=== PATIENT | female | born 1990 | race Caucasian/White ===

== ENCOUNTER 2020-05-23 19:20 | Emergency (ER) | payer SELFPAY ==
--- NOTE | 2020-05-23 19:54 | ED.SKABFB ---
HPI - Skin/Abscess/Foreign Bdy General Chief complaint: Skin/Abscess/Foreign Body Stated complaint: skin boil Time Seen by Provider: 05/23/20 19:54 Source: patient Mode of arrival: ambulatory Limitations: no limitations History of Present Illness HPI narrative: Hema Brush is a 29 yo c/o abscess on L breast x 2 days- large abscess on L upper breast- pt is 32 weeks Related Data Home Medications Medication Instructions Recorded Confirmed 05/23/20 Allergies Allergy/AdvReac Type Severity Reaction Status Date / Time Penicillins Allergy Mild VOMITING Verified 01/10/11 17:44 Review of Systems Review of Systems: Narrative: CONSTITUTIONAL: Denies fever, chills, sweats. EYES: Denies visual changes, redness, discharge. ENT: Denies rhinorrhea, congestion, sore throat, otalgia. CARDIOVASCULAR: Denies chest pain, palpitations, edema. RESPIRATORY: Denies dyspnea, wheezing, cough GASTROINTESTINAL: Denies abdominal pain, nausea, vomiting, diarrhea. GENITOURINARY: Denies dysuria, hematuria, abnormal discharge SKIN: Denies rash or itching. Abscess (left chest) NEUROLOGIC: Denies numbness, or focal weakness. PSYCHIATRIC: Denies anxiety or depression. [facility] Family History Family History (Updated 05/23/20 @ 19:56 by Ruby Valerio CNP) Other No active medical problems Social History Social History (Updated 05/23/20 @ 19:56 by Ruby Valerio CNP) Smoking status: Current every day smoker Alcohol intake: current Comments At time of signature, I agree with nursing past medical, surgical, social and family history. There is no relevant family history pertinent to the presenting complaint. Exam Narrative: Exam Narrative: GENERAL: This is a well-nourished, well-developed patient, in mild distress. HEAD: normocephalic, atraumatic. EYES: PERRL. Sclera clear/white. Vision is grossly intact. EARS: External ears normal, auditory canals clear and without drainage, TMs normal without perforation. Hearing grossly intact. NOSE: External nose normal without nasal discharge, nares without redness, no rhinorrhea. THROAT: Mucous membranes moist, posterior pharynx NECK: Neck supple, non-tender CARDIOVASCULAR: Regular rate and rhythm without murmurs, gallops, or rubs. RESPIRATORY: Clear to auscultation. Breath sounds equal bilaterally. No wheezes, rales, or rhonchi. GASTROINTESTINAL: Abdomen soft, non-tender, SKIN: warm, intact with no suspicious lesions or rash, good texture and turgor.abscess measuring 6x6 and indurated on upper left breast NEURO: awake, alert, and oriented to person, place and time. There were no obvious focal neurologic abnormalities. Steady gait EXTREMITIES: Normal range of motion. BACK: Nontender without deformity Course Course Emergency Course: Needle I&D done started on antibiotics culture sent Vital Signs Vital signs: Vital Signs Temperature 97.3 F L 05/23/20 19:55 Pulse Rate 82 05/23/20 19:55 Respiratory Rate 05/23/20 19:55 Blood Pressure 119/70 05/23/20 19:55 Pulse Oximetry 98 05/23/20 19:55 Temperature 97.3 F L 05/23/20 19:55 Pulse Rate 82 05/23/20 19:55 Respiratory Rate 05/23/20 19:55 Blood Pressure 119/70 05/23/20 19:55 Pulse Oximetry 98 05/23/20 19:55 Procedures Abscess I/D chest: Date of Incision: 05/23/20 Time of Incision: 19:57 Side (if applicable): left Technique: needle aspiration Amount of fluid expressed (mL): 50 Irrigation: No Packing used?: none I&D Results: Pus and Blood Abcess I&D Additional Comments: Tolerated procedure well - drained 50 cc from abscess- directions to continue warm compresses MDM - Skin/Abscess/Foreign Bdy Differential Diagnosis Differential diagnosis: Likely abscess of skin or subcutaneous tissue, allergic reaction to drug, cellulitis and other Discharge Plan Discharge Clinical Impression: Abscess of skin or subcutaneous tiss
[2020-05-23 19:55] VITALS: BP 119/70; PULSE 82; RESP 20; TEMP 36.3; O2SAT 98
== END 2020-05-23 20:38 | disposition home or self-care (01) ==
PROVIDERS: Emergency Provider Nurse Practitioner
DX: O91.113 Abscess of breast associated with pregnancy, third trimester (principal); O99.333 Smoking (tobacco) complicating pregnancy, third trimester; F17.210 Nicotine dependence, cigarettes, uncomplicated; Z3A.32 32 weeks gestation of pregnancy
CPT/HCPCS: 10160; 87070; 87077; 87186; 87205; 99213; G0463

== ENCOUNTER 2020-07-02 17:20 | Inpatient (IN) | payer MEDICAID, SELFPAY ==
[2020-07-02] VITALS (63 sets, daily range): BP systolic 107–166; BP diastolic 55–80; PULSE 40–72; RESP 12–15; TEMP 36.2–37.1; O2SAT 91–100
--- NOTE | 2020-07-02 17:21 | LDADM ---
This patient, Hema Brush, was admitted to Labor/Delivery/Recovery 108 on 07/02/20 at 17:21. Plans for labor, pain management and were discussed with patient. Patient/family oriented to hospital policies and general routines including ID bracelet, bed and alarms, visiting hours, pain management, procedures, bathroom and other care routines, personal items, smoking policy, room service/diet and guest tray routines, security routines, and visiting hours. Patient/Family are encouraged to report perceived risks to care and to ask questions if they do not understand what they are told or what they should do. See OBIX for further documentation.
--- NOTE | 2020-07-02 19:03 | WPDANESEPP ---
Anes - Eval Pre Procedure Procedure: repeat c section Date/Time: 07/02/20 19:03 Surgeon: chang Preop Diagnosis: previous c section Pre Op Diagnosis: contractions Patient Data Age: 30 Gender: F Height: Weight: Allergies Allergy/AdvReac Type Severity Reaction Status Date / Time Penicillins Allergy Mild VOMITING Verified 01/10/11 17:44 Home Medications Medication Instructions Recorded Confirmed Type 05/23/20 History cephalexin 500 mg PO Q8H #30 cap 05/23/20 Rx sulfamethoxazole-trimethoprim 1 tablet PO Q12H #20 tablet 05/23/20 Rx [Bactrim DS] Patient hx anesthesia problems: none Family hx anesthesia problems: none PMFSH Past Medical History Medical History (Updated 07/02/20 @ 19:04 by Makayla Taveras CRNA) Hepatitis C Heroin abuse Intrauterine Polysubstance abuse Family History Family History (Updated 05/23/20 @ 19:56 by Ruby Valerio CNP) Other No active medical problems Social History Social History (Updated 05/23/20 @ 19:56 by Ruby Valerio CNP) Smoking status: Current every day smoker Alcohol intake: current Exam Day of Procedure 07/02/20 19:03
--- NOTE | 2020-07-02 20:04 | PM.IMHP ---
H&P: HPI History of Present Illness Date/Time: 07/02/20 20:04 Chief complaint: contractions Narrative: History obtained primarily by nursing staff as patient was in pain and unable to cooperate at all. Hema Brush is a 30 year old female DAVIE (per patient report) 07/19/20 currently 37w4d gestation who presented to L&D via EMS with complaints of contractions. Patient was obviously under the influence of heavy drug use and obtaining a history was difficult. She reported possible leakage of fluid, however, was uncertain and did not know what time this may have occurred. She reports limited care in [place]. She reports marijuana, heroin, and methamphetamine use. She states that she used heroin and methamphetamines yesterday and only marijuana today, however, presentation is highly suggestive of other drug use today. Upon arrival to L&D, patient was in active labor tete approx. every 1-2 mins. SVE was 4/100/-1 with bulging forebag. ROM plus was positive and patient was confirmed to be ruptured. She progressed rapidly to 9cm dilated within 45 mins. Patient was writhing in bed and pushing uncontrollably with contractions. Patient has a history of previous C/S x 1 for ? arrest of descent. Initial decision was to proceed with a C/S as patient had unknown history and no records available. However, IV access that was established became compromised and was difficult to reestablish with patient's inability to cooperate. An attempt was made to delivery vaginally via with a few pushes, however, patient was too uncontrolled and situation was deemed unsafe for a vaginal delivery. Several attempts were made to reestablish IV access with the last one successful. Patient was then transferred to OR for an emergent C/S. Of note, a bag of suspected drugs containing 7 pills and another unknown substance were found by nurse on labor bed with patient. [facility] Past Medical History Medical History (Updated 07/02/20 @ 20:31 by Lora Edwards MD) Hepatitis C Heroin abuse Intrauterine Polysubstance abuse Surgical History Surgical History (Updated 07/02/20 @ 20:31 by Lora Edwards MD) Previous section Family History Family History (Updated 05/23/20 @ 19:56 by Ruby Valerio CNP) Other No active medical problems Social History Social History (Updated 05/23/20 @ 19:56 by Ruby Valerio, NAMED ACCOUNT EXECUTIVE) Smoking status: Current every day smoker Alcohol intake: current Meds Home Medications and Allergies Home Medications Medication Instructions Recorded Confirmed Type 05/23/20 History cephalexin 500 mg PO Q8H #30 cap 05/23/20 Rx sulfamethoxazole-trimethoprim 1 tablet PO Q12H #20 tablet 05/23/20 Rx [Bactrim DS] Allergies Allergy/AdvReac Type Severity Reaction Status Date / Time Penicillins Allergy Mild VOMITING Verified 01/10/11 17:44 Vital Signs Vital Signs - 24 hr 07/02/20 19:47 07/02/20 19:49 07/02/20 19:51 Pulse Rate 56 L 57 L Blood Pressure 107/59 L 109/61 Pulse Oximetry 100 07/02/20 19:52 07/02/20 19:56 07/02/20 19:57 Pulse Rate 55 L Blood Pressure 113/61 Pulse Oximetry 100 100 07/02/20 20:01 07/02/20 20:02 Pulse Rate 53 L Blood Pressure 118/66 Pulse Oximetry 100 Exam Const: General: in distress (tete in labor) severe, diaphoretic, intoxicated appearing, poor hygiene and uncomfortable : Manual OB Exam: dilated 9 cm, effaced fully and station -1 Amniotic Fluid: clear Extrem: Right lower extremity: edema Details: 1+ Left lower extremity: edema Details: 1+ Psych: Appearance: disheveled Assessment and Plan Assessment and plan (1) Active labor at term: Status: Acute Assessment and Plan: Admit to L&D Full set of labs Urine drug screen To OR for emergent repeat C/S (2) Polysubstance abuse: Code(s): F19.10 - Other psychoactive substance abuse, uncomplicated Status: Acute (3) He
[2020-07-02 20:12] LABS: Basophils Percent Auto 0.5 % (0.2-1.2); Eosinophils Absolute Auto 0.1 K/mm3 (0-0.3); Eosinophils Percent Auto 0.8 % (0-4.4); Hematocrit 26.2 % (37.0-47.0); Hemoglobin 8.5 g/dL (12.0-15.0); Immature Granulocyte Absolute 0.07 K/mm3 (0.00-0.031); Immature Granulocyte Percent A 0.9 % (0-0.5); Lymphocytes Absolute Auto 1.37 K/mm3 (0.9-3.2); Lymphocytes Percent Auto 18.1 % (18.3-44.2); Mean Corpuscular HGB Conc 32.4 g/dl (32-36); Mean Corpuscular Hemoglobin 28.9 pg (26-34); Mean Corpuscular Volume 89.1 fl (80-100); Monocytes Absolute Auto 0.5 K/mm3 (0.1-0.6); Monocytes Percent Auto 6.5 % (2.6-8.5); Neutrophils Absolute Auto 5.5 K/mm3 (1.3-6.7); Neutrophils Percent Auto 73.2 % (45.5-73.1); Nucleated Red Blood Cells Perc 0.3 % (0.0-0.2); Platelet Count Result 209 k/mm3 (150-375); Red Blood Count 2.94 M/mm3 (4.2-5.4); Red Cell Distribution Width 14.2 % (11.5-14.5); White Blood Count 7.6 K/mm3 (4.5-10.0)
[2020-07-02 20:28] LABS: Barbiturate Screen Urine Negative (Negative); Benzodiazepines Screen Urine Negative (Negative)
[2020-07-02 20:30] LABS: Cannabinoid Screen Urine Negative (Negative); Cocaine Screen Urine Negative (Negative); Methadone Screen Urine Negative (Negative); Opiate Screen Urine Negative (Negative); Phencyclidine Screen Urine Negative (Negative)
--- NOTE | 2020-07-02 20:30 | PC.NURSE ---
Small plastic bag with 7 small capsules (unmarked) filled with a white substance and wax paper folded which appeared to have a substance in it as well found in patient's bed. supervisor cutting department notified and picked up to place in security safe.
--- NOTE | 2020-07-02 20:32 | PM.PROC ---
Procedure Note - Detailed Date of procedure: 07/02/20 Pre-op diagnosis: contractions IUP at 37w4d Active labor Previous C/S x 1 Limited outside care Polysubstance abuse Hepatitis C positive Post-op diagnosis: same Procedure performed: Emergent repeat low transverse section via Pfannenstiel Description of procedure: Patient was transferred to the operating room. Patient was writing in bed uncontrollably alternating with periods of being difficult to arouse. General anesthesia was administered. Patient was repositioned in dorsal supine position and betadine was applied to abdomen. She was quickly prepped and draped. A Pfannenstiel skin incision was made and carried through to the underlying layer of fascia. The fascia was incised with scalpel. The inferior aspect of fascial incision was grasped with Julia clamps, elevated, and underlying rectus muscles were dissected off with Clark scissors. Attention was turned to the superior aspect of the fascial incision, which in a similar manner, was grasped with Julia clamps, elevated, and the underlying rectus muscle were also dissected off with Clark scissors. The rectus muscles were in the midline and the peritoneal cavity was entered bluntly. A bladder blade was inserted. A low-transverse uterine incision was made with scalpel. The incision was extended bluntly. 's head was guided to the level of the uterine incision, however, was unable to be delivered upon initial attempt. Additional room was needed to facilitate delivery and the right side of uterine incision was cut with bandage scissors to increase incision width. When 2nd attempt was made to place hand underneath of head, fetus turned into transverse presentation. An effort was made to reposition infant in vertex presentation, however, infant continued to turn into breech presentation. Decision made to deliver baby in breech presentation. Infant's buttocks were grasped and guided to the level of the uterine incision and delivered through incision. 's body was gently rotated to the right side and infant's left knee was flexed and leg was delivered through the incision. Infant was then gently rotated to the left side where 's right knee was flexed and the right leg was delivered through the incision. A blue towel was wrapped around baby's iliac crests and was guided through incision to level of the scapula. Infant's right arm was flexed and guided through the incision. Infant was rotated to the right side where, in a similar manner, the infant's left arm was flexed and delivered. The infant's head was flexed and easily delivered afterwards. Nose and mouth were suctioned with bulb suction. Cord was clamped and cut. Infant was handed off to waiting pediatric staff. A segment of cord was collected for cord gases. Cord blood was collected. The placenta was then delivered with gentle uterine massage. The uterus was exteriorized and cleared of all clots and debris. The uterine incision was reapproximated with 0 Vicryl. A 2nd imbricating layer using 0 Monocryl was performed. On inspection, the uterus, ovaries, and fallopian tubes appeared to be normal bilaterally. The uterus was replaced into the abdominal cavity. The gutters were cleared of all clots and debris and the abdomen was irrigated and suctioned. The uterine incision was inspected again and noted to be hemostatic. Hemoderm was applied across the uterine incision. Seprafilm was also applied across the uterine incision and anterior surface of the uterus. The fascia was reapproximated with 0 Vicryl. The subcutaneous area was irrigated. Pinpoint areas of bleeding were made hemostatic with use of Bovie. The subcutaneous layer was reapproximated with 2-0 plain. The skin was then closed with 4-0 Monocryl in a subcuticular fashion. Dermaflex skin adhesive was applied across the incision. A pressure dressing was applied. The patient was cleansed
[2020-07-02 20:45] LABS: Amphetamine Screen Urine Positive (Negative)
--- NOTE | 2020-07-02 20:57 | PM.OBPRVD ---
OB - Delivery Note Procedure Delivery date: 07/02/20 Procedure: Procedures Operation Date: 07/02/20 18:30 <No data on this case meets the specified criteria> Delivery monitor: external FHT and external uterine Route of delivery: Specimen: Yes (placenta and cord) Estimated blood loss (mL): 800 Anesthesia type: General Disposition: PACU [place] Baby Date of : 07/02/20 Time of : 18:45 Weeks of gestation at delivery: 37 gender: Male Weight (pounds): 6 Weight (ounces): 15 presentation: breech Placenta delivery description: Spontaneous cord vessel description: 3 Vessels score one minute: 8 score five minutes: 9
[2020-07-02 21:07] LABS: HIV 1/2 Ab P24 Ag Result Negative (Negative)
[2020-07-02 21:26] LABS: Rubella IgG Antibody 5.7 IU/ML
[2020-07-02 21:33] LABS: Hepatitis B Surface Antigen Negative (Negative)
[2020-07-02] MEDS: OXYTOCIN 30 UNITS/NS 500 ML 30 UNITS/500 ML BAG 125 UNITS IV CONT (21:37)
[2020-07-02 21:40] LABS: HAV RESULT Negative (Negative); Hepatitis B Core IgM Result Negative (Negative)
[2020-07-02 21:54] LABS: Hepatitis C Virus Antibody Reactive (Negative)
[2020-07-03 00:30] VITALS: BP 118/72; PULSE 60
[2020-07-03 01:30] VITALS: BP 128/79; PULSE 69; RESP 18
[2020-07-03] MEDS: DEXTROSE 5%/0.45% SOD CHL 1,000 ML 125 ML IV CONT (01:30)
[2020-07-03 02:00] VITALS: BP 105/60; PULSE 65
[2020-07-03] MEDS: KETOROLAC 30 MG/ML VIAL (*BKC) IV PUSH ×2 (04:24→10:32)
[2020-07-03 04:30] VITALS: BP 102/60; PULSE 60; RESP 16; TEMP 37.4; O2SAT 97
--- NOTE | 2020-07-03 05:46 | PC.NURSE ---
0440 Patient refuses lab draw.
[2020-07-03 06:30] VITALS: BP 107/63; PULSE 62; RESP 16; TEMP 36.8
[2020-07-03] MEDS: ACETAMINOPHEN 325 MG TABLET 650 MG PO (06:48)
--- NOTE | 2020-07-03 07:31 | PM.OBPNVD ---
OB - PN: Subj Subjective Date/time seen: 07/03/20 07:31 Patient seen at bedside. Sleepy. Slightly arousable, however, minimally responsive to questions when asked. Does not appear to be in pain or discomfort. OB - PN: Obj Data Labs CBC & Chem 7: 07/02/20 20:03 Labs: Laboratory Results - last 24 hr 07/02/20 07/02/20 07/02/20 20:03 20:03 20:03 WBC 7.6 RBC 2.94 L Hgb 8.5 L Hct 26.2 L MCV 89.1 MCH 28.9 MCHC 32.4 RDW 14.2 Plt Count 209 MPV 11.0 H Immature Gran % (Auto) 0.9 H Neut % (Auto) 73.2 H Lymph % (Auto) 18.1 L Mcminn % (Auto) 6.5 Eos % (Auto) 0.8 Baso % (Auto) 0.5 Lymph # (Auto) 1.37 Mcminn # (Auto) 0.5 Eos # (Auto) 0.1 Baso # (Auto) 0.0 Abs Immat Gran (auto) 0.07 H Absolute Neuts (auto) 5.5 Absolute Nucleated RBC 0.0 Nucleated RBC % 0.3 H Urine Opiates Screen Urine Methadone Screen Ur Barbiturates Screen Ur Phencyclidine Scrn Ur Amphetamine Screen U Benzodiazepines Scrn Urine Cocaine Screen U Cannabinoids Screen Hepatitis A IgM Ab Hep Bs Antigen Cancelled Hep B Core IgM Ab Hepatitis C Ab Screen HIV 1&2 Ab/P24 Ag 4thGn Negative Rubella IgG Antibody 5.7 L Blood Type Antibody Screen 07/02/20 07/02/20 07/02/20 20:03 20:03 20:03 WBC RBC Hgb Hct MCV MCH MCHC RDW Plt Count MPV Immature Gran % (Auto) Neut % (Auto) Lymph % (Auto) Mcminn % (Auto) Eos % (Auto) Baso % (Auto) Lymph # (Auto) Mcminn # (Auto) Eos # (Auto) Baso # (Auto) Abs Immat Gran (auto) Absolute Neuts (auto) Absolute Nucleated RBC Nucleated RBC % Urine Opiates Screen Negative Urine Methadone Screen Negative Ur Barbiturates Screen Negative Ur Phencyclidine Scrn Negative Ur Amphetamine Screen Positive A U Benzodiazepines Scrn Negative Urine Cocaine Screen Negative U Cannabinoids Screen Negative Hepatitis A IgM Ab Negative Hep Bs Antigen Negative Hep B Core IgM Ab Negative Hepatitis C Ab Screen Reactive HIV 1&2 Ab/P24 Ag 4thGn Rubella IgG Antibody Blood Type A Positive Antibody Screen Negative OB - PN A/P Assessment and Plan (1) Delivery by section at 37-39 weeks of gestation due to labor: Code(s): O75.82 - Onset (spontaneous) of labor after 37 completed weeks of gestation but before 39 completed weeks gestation, with delivery by (planned) section Status: Acute Assessment and Plan: Continue routine postoperative care Pain management PRN, avoid narcotics Will d/c lua this afternoon/evening Encourage OOB to chair Advance diet slowly as tolerated (2) Polysubstance abuse: Code(s): F19.10 - Other psychoactive substance abuse, uncomplicated Status: Acute Assessment and Plan: social scientist consult requested Time Spent With Patient Time: Total time spent is greater than 50% in coordination of care (as documented) at patient's floor/unit and/or counseling patient: Exam Const: General: no acute distress Resp: Effort & Inspection: normal respiratory effort Auscultation: clear to auscultation bilaterally Cardio: Rate: regular rate GI: GI Palp: Yes Soft to palpation and Yes Tenderness to palpation present (GI) (appropriately tender, patient grimacing a little when fundus palpated) Other: inc covered with bandage that is c/d/i Extrem: Right lower extremity: edema Details: 1+ Left lower extremity: edema Details: 1+ Other: no calf tenderness Psych: Appearance: disheveled Affect: Blunted affect present
--- NOTE | 2020-07-03 09:10 | PC.NURSE ---
Patient heard at desk yelling from room. Pain medication brought in, pt closed eyes and did not respond. Pt. instructed that Dr. Edwards had been notified regarding her pain and [place] order. Pt. closed eyes and would not respond to questions. Pt. instructed that she needed to sit up and respond if she wanted the pain medication. Pt. then sat up and took pill and laid back down.
--- NOTE | 2020-07-03 09:30 | PC.NURSE ---
Pt. again heard yelling from desk. Nurse went to room, patient laying in bed. Pt asked in she needed something. Pt. encouraged to try and rest and not move around so much. Room cleaned up. Blankets and drink offered. Pt. refused to talk to nurse but shook head no when asked if she needed assistance.
--- NOTE | 2020-07-03 09:40 | PC.NURSE ---
Pt. heard yelling in room. Nurse went to room pt. laying in room and refused to open eyes or talk but nodded that she didn't need anything.
--- NOTE | 2020-07-03 10:00 | PC.NURSE ---
Pt. asking about when she can go home. Discussed with patient that she will need to stay at least 24 hours after c/s. Pt. found up in room by another staff member. Pt. states she was up and had no dizziness. Pt. had moved lua catheter up to head of bed. Pt. instructed that bag needed to remain lower than bladder.
[2020-07-03 10:21] LABS: Rapid Plasma Reagin Non-Reactive (NonReactive)
--- NOTE | 2020-07-03 11:00 | PC.NURSE ---
Pt. told engineering secretary that she was leaving. Pt. asked to wait for short time. Dr. Jerry espinosa.
--- NOTE | 2020-07-03 11:22 | PC.NURSE ---
Pt. states I am leaving Pt. encouraged to stay. Pt. instructed that does not want her to leave due to major surgery less than 24 hours ago and no prescriptions given. Pt. said she could stay until lunch and then requested warm blanket. Returned to room with warm blanket and pt. was getting dressed and stated My ride is here I am leaving Pt. walked out of room carrying belongings and barefoot. Pt. states she had shoes but would not put them on. Pt. escorted to elevator and walked out doors. No ride seen. Pt. proceeded to parking lot and ER area. Security, Loading Dock Helper, Social work and housekeeping laundry worker notified.
--- NOTE | 2020-07-03 11:59 | PCCCNOTE ---
Addendum entered by SABIHA Pena 07/04/20 16:07: Received call from Lisa Quiroga CPS worker for [facility] in [place]. Call back is [phone]. Per she is aware of allegations and has spoken to the CPS worker that was associated with pt. regarding her 1 year old boy last year. [facility] [phone] to investigate. and Josie will contact Chey Butler at [facility] for all further information regarding DCFS case, pt. and Baby Feliciano Brush. Addendum entered by SABIHA Pena 07/03/20 16:27: Received confirmation that [facility] will take a report Intake ID # [id number]. CC received call from Chey Butler NICU Charging Crane Operator at [facility] to confirm baby and FOB is currently at hospital. Provided Chey information regarding DCFS report and below information. Per Chey she can be contacted at [phone] and requests to be contacted once DCFS laundry worker makes contact. Will continue to follow. Original Note: Social Service Consult Hema Brush, gave to Baby Feliciano Brush on 07/02/2020. Mainor Brush was then emergently transferred to [facility] in [place], [place]. Hema Brush has been residing with her mother Caro Brush at [address] [place] [address] for several months. Prior to that she was living in [place] with a reported address of [address] [place] [address]. Mother was sent via EMS to [facility] on 07/02/2020 after ingesting heroin and going into labor. Mother admits to heroin, methamphetamine and marijuana use within the last 9 months of . No care. Last Heroin use two days ago. Drugs and paraphernalia were on her person upon arrival to hospital. OB Doctor had to perform section as mother was unable to cooperate with the of mainor Brush due to being under the influence of drugs. FOB was present during and was also under the influence of substances, he did not provide his name. Hema's toxicology screen was positive for methamphetamines upon admission. Hema is currently refusing to discuss any further specifics with nursing and CC . It is reported that Hema has one other child however child's whereabouts are unknown. Online DCFS [place] report was filed reference ID [id number]. Also called in a DCFS report to the [facility] Report #[id number], per laundry worker a report will be made and submitted to [facility]. Called and spoke with Fátima with Senior Lead Project Manager at [facility] to inform of the above, per Fátima either Charging Crane Operator Chey or Gina will be assigned the baby as he is currently in the NICU. CC provided call back number to Fátima and informed that DCFS will likely be following up with the hospital. Informed by nurse Siegel that pt. left AMA from hospital.
--- NOTE | 2020-07-03 12:10 | PM.OBPNVD ---
OB - PN: Subj Subjective Date/time seen: 07/03/20 12:10 Notified by cleaner wall that patient was threatening to leave AMA. Went to see pt, however, patient had already left. While leaving L&D, was notified by another RN that she saw patient at end of parking lot near intersection. She stated that patient would alternate between laying down in ditch and standing back up and was blocking traffic. Immediately went to find patient. Requested assistance from nursing staff and security. Walked through parking lot to location where patient was last seen, however, patient was no longer there. A passerby stopped and asked if I was looking for a person matching the description of patient. When I answered affirmatively, the person stated that he saw her get into a white vehicle that continued along the same road. When I walked back into the hospital, was notified that RN also witnessed patient getting into car. OB - PN: Obj Data Labs CBC & Chem 7: 07/02/20 20:03 Labs: Laboratory Results - last 24 hr 07/02/20 07/02/20 07/02/20 20:03 20:03 20:03 WBC 7.6 RBC 2.94 L Hgb 8.5 L Hct 26.2 L MCV 89.1 MCH 28.9 MCHC 32.4 RDW 14.2 Plt Count 209 MPV 11.0 H Immature Gran % (Auto) 0.9 H Neut % (Auto) 73.2 H Lymph % (Auto) 18.1 L [place] % (Auto) 6.5 Eos % (Auto) 0.8 Baso % (Auto) 0.5 Lymph # (Auto) 1.37 [place] # (Auto) 0.5 Eos # (Auto) 0.1 Baso # (Auto) 0.0 Abs Immat Gran (auto) 0.07 H Absolute Neuts (auto) 5.5 Absolute Nucleated RBC 0.0 Nucleated RBC % 0.3 H Urine Opiates Screen Urine Methadone Screen Ur Barbiturates Screen Ur Phencyclidine Scrn Ur Amphetamine Screen U Benzodiazepines Scrn Urine Cocaine Screen U Cannabinoids Screen RPR Non-reactive Hepatitis A IgM Ab Hep Bs Antigen Cancelled Hep B Core IgM Ab Hepatitis C Ab Screen HIV 1&2 Ab/P24 Ag 4thGn Rubella IgG Antibody 5.7 L Blood Type Antibody Screen 07/02/20 07/02/20 07/02/20 20:03 20:03 20:03 WBC RBC Hgb Hct MCV MCH MCHC RDW Plt Count MPV Immature Gran % (Auto) Neut % (Auto) Lymph % (Auto) [place] % (Auto) Eos % (Auto) Baso % (Auto) Lymph # (Auto) [place] # (Auto) Eos # (Auto) Baso # (Auto) Abs Immat Gran (auto) Absolute Neuts (auto) Absolute Nucleated RBC Nucleated RBC % Urine Opiates Screen Negative Urine Methadone Screen Negative Ur Barbiturates Screen Negative Ur Phencyclidine Scrn Negative Ur Amphetamine Screen Positive A U Benzodiazepines Scrn Negative Urine Cocaine Screen Negative U Cannabinoids Screen Negative RPR Hepatitis A IgM Ab Hep Bs Antigen Hep B Core IgM Ab Hepatitis C Ab Screen HIV 1&2 Ab/P24 Ag 4thGn Negative Rubella IgG Antibody Blood Type A Positive Antibody Screen Negative 07/02/20 20:03 WBC RBC Hgb Hct MCV MCH MCHC RDW Plt Count MPV Immature Gran % (Auto) Neut % (Auto) Lymph % (Auto) [place] % (Auto) Eos % (Auto) Baso % (Auto) Lymph # (Auto) [place] # (Auto) Eos # (Auto) Baso # (Auto) Abs Immat Gran (auto) Absolute Neuts (auto) Absolute Nucleated RBC Nucleated RBC % Urine Opiates Screen Urine Methadone Screen Ur Barbiturates Screen Ur Phencyclidine Scrn Ur Amphetamine Screen U Benzodiazepines Scrn Urine Cocaine Screen U Cannabinoids Screen RPR Hepatitis A IgM Ab Negative Hep Bs Antigen Negative Hep B Core IgM Ab Negative Hepatitis C Ab Screen Reactive HIV 1&2 Ab/P24 Ag 4thGn Rubella IgG Antibody Blood Type Antibody Screen OB - PN A/P Time Spent With Patient Time: Total time spent is greater than 50% in coordination of care (as documented) at patient's floor/unit and/or counseling patient:
[2020-07-10 18:45] LABS: Hepatitis C RNA, Quant PCR 1450000 IU/mL
== END 2020-07-03 11:22 | disposition left against medical advice (07) | DRG 540 ==
LOC: ANHLDR 18:32 → ANHOB2 23:22
PROVIDERS: Admitting Provider Student in an Organized Health Care Education/Training Program; Visit Provider Student in an Organized Health Care Education/Training Program
PROC: 10D00Z1 Extraction of Products of Conception, Low, Open Approach (ICD-10-PCS; CPT 59514; principal; 2020-07-02 18:30)
DX: O75.82 Onset (spontaneous) of labor after 37 completed weeks of gestation but before 39 completed weeks gestation, with delivery by (planned) cesarean section (principal); B19.20 Unspecified viral hepatitis C without hepatic coma; O32.1XX0 Maternal care for breech presentation, not applicable or unspecified; O34.211 Maternal care for low transverse scar from previous cesarean delivery; Z37.0 Single live birth; Z3A.37 37 weeks gestation of pregnancy; O98.42 Viral hepatitis complicating childbirth; F15.129 Other stimulant abuse with intoxication, unspecified; F12.10 Cannabis abuse, uncomplicated; F19.10 Other psychoactive substance abuse, uncomplicated; O09.33 Supervision of pregnancy with insufficient antenatal care, third trimester; O99.334 Smoking (tobacco) complicating childbirth; F17.210 Nicotine dependence, cigarettes, uncomplicated
CPT/HCPCS: 36415; 80074; 80307; 84112; 85025; 86592; 86703; 86762; 86850; 86900; 86901; 87491; 87522; 87591; A9270; C1765; G0432; J0131; J0330; J1100; J1885; J2370; J2405; J2590; J2704